=== PATIENT | male | born 1930 | race Caucasian/White ===

== ENCOUNTER 2017-06-21 10:02 | Day surgery (SDC) | payer MEDICARE, BC, SELFPAY ==
[~2017-06-21] VITALS: Ht 174 cm; Wt 77.1 kg
[2017-06-21] VITALS (10 sets, daily range): BP systolic 106–124; BP diastolic 42–66
--- NOTE | 2017-06-21 09:36 | Pre-Procedure Note/Attestation ---
Pre-Procedure Note/Attestation Complete Prior to Procedure Planned Procedure: left - Removal of cataract and placement of intraocular lens , left eye Procedure Narrative: Removal of cataract and placement of intraocular lens, left eye Indications for Procedure Pre-Operative Diagnosis: Cataract, combined, left eye Attestation I attest that I discussed the nature of the procedure; its benefits; risks and complications; and alternatives (and the risks and benefits of such alternatives ), prior to the procedure, with the patient (or the patient's legal retail wireless sales representative). I attest that, if there was a reasonable possibility of needing a blood transfusion, the patient (or the patient's legal retail wireless sales representative) was given the [place] Department of Health Services standardized written summary, pursuant to the [place] Blood Safety Act ([place] Health and Safety Code # 1645, as amended). I attest that I re-evaluated the patient just prior to the surgery and that there has been no change in the patient's H&P, except as documented below: Zia Coffman MD Jun 21, 2017 09:36
[~2017-06-21 10:02] MED LIST: BACTRIM-DS1 EA ORAL; CARTIA XT240 MG ORAL; CRESTOR10 M2 ORAL; CYMBALTA60 MG ORAL; GABAPENTIN300 MG ORAL; HYDROCODON-ACE1 EA16 ORAL; LIDOCAINE700 M1 TP; LYRICA75 M1 ORAL; NKM; NUVIGIL200 MG PO; PRADAXA150 MG ORAL; PREDNISONE20 MG ORAL; RAMIPRIL5 MG ORAL; ZOFRAN4 M1 ORAL; ZYTIGA500 MG PO
[2017-06-21] MEDS ORDERED: Fluorescein Strips ONE (10:18)
[2017-06-21] MEDS ORDERED: BSS 500ml btl ONE (10:18)
[2017-06-21] MEDS ORDERED: Timolol 0.5% Op Soln 2.5ml ONE (10:19)
[2017-06-21] MEDS ORDERED: Dexamethasone 4mg/ml vial ONE (10:19)
[2017-06-21] MEDS ORDERED: Tetracaine 0.5% Opth 4ml Soln ONE (10:19)
[2017-06-21] MEDS ORDERED: Pred Forte 1% Opth Susp 1ml ONE (10:19)
[2017-06-21] MEDS ORDERED: Maxitrol Opth Oint 3.5gm ONE (10:19)
[2017-06-21] MEDS ORDERED: Lidocaine 1% MPF 10mg/ml 5ml ONE ×2 (10:19→12:06)
[2017-06-21] MEDS ORDERED: EPINEPHrine 1mg/1ml Amp ONE (10:20)
[2017-06-21] MEDS ORDERED: Povidone-Iodine 5% opth solution ONE (10:20)
[2017-06-21] MEDS ORDERED: Lidocaine 4% Amp ONE (10:20)
[2017-06-21] MEDS ORDERED: Carbachol 0.01% Op Soln 1.5ml vial ONE (10:20)
[2017-06-21] MEDS ORDERED: Sodium Hyaluronate 10 mg/ml 0.85ml ONE ×2 (10:21→13:22)
[2017-06-21] MEDS ORDERED: Bupivacaine 0.75% 30ml vial INJ ONE (10:21)
[2017-06-21] MEDS ORDERED: Acetylcholine Injection (OR) ONE (10:21)
[2017-06-21] MEDS ORDERED: BSS 15ml BTL ONE (10:21)
[2017-06-21] MEDS ORDERED: Phenylephrine 10% Opth Soln 5ml ONE (10:59)
[2017-06-21] MEDS ORDERED: Ciprofloxacin Opth Soln 2.5ml ONE (11:00)
[2017-06-21] MEDS ORDERED: Akten 3.5% 1ml Btl ONE (11:00)
[2017-06-21] MEDS ORDERED: Cyclopentolate 1% Opth Sol 2ml ONE (11:00)
[2017-06-21] MEDS: Akten 3.5% 1ml Btl LEFT EYE SCH ×3 (11:05→11:19)
[2017-06-21] MEDS: Ciprofloxacin Opth Soln 2.5ml LEFT EYE SCH ×3 (11:06→11:19)
[2017-06-21] MEDS: Cyclopentolate 1% Opth Sol 2ml LEFT EYE SCH ×3 (11:06→11:19)
[2017-06-21] MEDS: Phenylephrine 10% Opth Soln 5ml LEFT EYE SCH ×3 (11:06→11:19)
--- NOTE | 2017-06-21 11:29 | Anethesia Preoperative Eval ---
Anesthesia Pre-op PMH/ROS General Date of Evaluation: Jun 21, 2017 Time of Evaluation: 12:11 Anesthesiologist: Dara ASA Score: ASA 4 Mallampati Score Class I : Soft palate, uvula, fauces, pillars visible Class II: Soft palate, uvula, fauces visible Class III: Soft palate, base of uvula visible Class IV: Only hard plate visible Mallampati Classification: Class II Surgeon: Augustus Diagnosis: Cataract OS Surgical Procedure: Cat Ext IOL OS Anesthesia History: none Family History: no anesthesia problems Allergies: Coded Allergies: No Known Allergies (Unverified , 09/21/15) Medications: see eMAR Past Medical History Cardiovascular: Reports: HTN, CAD, [place], arrhythmia - AFib Gastrointestinal/Genitourinary: Reports: other - Prostate CA Endocrine: Reports: DM HEENT: Reports: cataract (L), IROQUOIS (L), IROQUOIS (R) PSxH Narrative: Lumbar Spine SX, Renal Stent Anesthesia Pre-op Phys. Exam Physician Exam Last Vital Signs Date Time Temp Pulse Resp B/P (MAP) Pulse Ox O2 Delivery O2 Flow Rate FiO2 06/21/17 10:47 97.5 53 20 124/62 95 Room Air Constitutional: NAD Neurologic: CN 2-12 intact Cardiovascular: RRR Respiratory: CTA Gastrointestinal: S/NT/ND Airway Exam Mallampati Score: Class II MO: limited ROM: limited Teeth: missing, intact Anesthesia Pre-op A/P Labs Coagulation Test 06/21/17 11:05 Prothrombin Time Pending Prothromb Time International Ratio Pending Activated Partial Thromboplast Time Pending Risk Assessment & Plan Assessment: ASA 3 Plan: [place] Status Change Before Surgery: Tonio Skaggs MD Jun 21, 2017 11:29
[2017-06-21] MEDS ORDERED: LR 1000ml 1,000 ML IVLG SCH (11:32)
[2017-06-21 11:36] LABS: INR 1.1 (0.9-1.1); PROTHROMBIN TIME 11.5 SEC (9.30-11.50)
--- NOTE | 2017-06-21 11:37 | Immediate Post-Op Evaluation ---
Immediate Post-Op Evalulation Immediate Post-Op Evalulation Procedure: Cat Ext IOL OS Date of Evaluation: Jun 21, 2017 Time of Evaluation: 13:29 IV Fluids: 200 LR Blood Products: 0 Estimated Blood Loss: 1 Urinary Output: 0 Blood Pressure Systolic: 118 Blood Pressure Diastolic: 62 Pulse Rate: 41 Respiratory Rate: 16 O2 Sat by Pulse Oximetry: 100 Temperature (Fahrenheit): 97 Pain Score (1-10): 1 Nausea: No Vomiting: No Complications 0 Patient Status: awake, reacts, patent, extubated, none Hydration Status: adequate Tonio Diamond MD Jun 21, 2017 11:37
--- NOTE | 2017-06-21 11:38 | 48 Hour Post Anesthesia Eval ---
Post Anesthesia Evaluation Procedure: Cat Ext IOL OS Date of Evaluation: Jun 21, 2017 Time of Evaluation: 15:41 Blood Pressure Systolic: 115 0: 73 Pulse Rate: 46 Respiratory Rate: 18 Temperature (Fahrenheit): 97.2 O2 Sat by Pulse Oximetry: 100 Airway: patent Nausea: No Vomiting: No Pain Intensity: 1 Hydration Status: adequate Cardiopulmonary Status: Stable Mental Status/LOC: patient returned to baseline Follow-up Care/Observations: 0 Post-Anesthesia Complications: 0 Follow-up care needed: ready to discharge Tonio Diamond MD Jun 21, 2017 11:38
[2017-06-21] MEDS ORDERED: Norco 7.5mg/325mg tab ORAL PRN (11:45)
[2017-06-21] MEDS ORDERED: Atropine Inj 1mg/10ml Syr IV PRN (11:45)
[2017-06-21] MEDS ORDERED: Midazolam 2mg/2ml Inj IVP PRN (11:45)
[2017-06-21] MEDS ORDERED: fentaNYL 100 mcg/2 mL IV PRN (11:45)
[2017-06-21] MEDS ORDERED: Hydromorphone 0.5mg/0.5ml inj IVP PRN (11:45)
[2017-06-21] MEDS ORDERED: LORazepam Inj 2mg/ml 1ml IV PRN (11:45)
[2017-06-21] MEDS ORDERED: Metoclopramide 10mg/2ml Inj IVP PRN (11:45)
[2017-06-21] MEDS ORDERED: oxyCODONE HCL/Acetaminophen 5/325mg ORAL PRN (11:45)
[2017-06-21] MEDS ORDERED: DiphenhydrAMINE 50mg/ml Inj IVP PRN (11:45)
[2017-06-21] MEDS ORDERED: Ketorolac 30mg Inj IV PRN (11:45)
[2017-06-21] MEDS ORDERED: Ketorolac 60mg Inj IV PRN (11:45)
[2017-06-21] MEDS ORDERED: Norco 5mg/325mg tab ORAL PRN (11:45)
[2017-06-21] MEDS ORDERED: Midazolam 2mg/2ml Inj ONE (12:00)
[2017-06-21] MEDS ORDERED: Propofol 200mg/20ml IV ONE (12:06)
[2017-06-21] MEDS ORDERED: LR 1000ml ONE (12:06)
--- NOTE | 2017-06-21 13:24 | Discharge Instructions ---
Discharge Instructions Discharge Instructions Follow Up Orders Continue eye drops Followup tomorrow in Dr Coffman's office Wear shield at all times except to place eye drops Return to Work/School on: Jun 21, 2017 For Congestive Heart Failure Reminder Report to your physician any weight gain of 5 pounds or more in one week. Zia Coffman MD Jun 21, 2017 13:24
--- NOTE | 2017-06-24 09:31 | Brief Operative Note ---
Immediate Post Operative Note Operative Note Pre-op Diagnosis: Cataract, combined, left eye Procedure: Phaco PC IOL, OS Use of malyugian ring, (7.0) Post-op Diagnosis: Cataract, combined, left eye floppy iris syndrome, left eye Post-op Diagnosis: same as pre-op plus Surgeon: Bettye Coffman MD Throw Out Clerk: none Anesthesiologist: Dr Hyde Anesthesia: local, MAC Specimen: none Complications: none Fluids: see notes Estimated Blood Loss: minimal Implant(s) used?: Yes - armida snd1T4 20.0 Zia Coffman MD Jun 24, 2017 09:31
--- NOTE | 2017-06-26 04:15 | Operative Note - Dictated ---
DATE OF OPERATION: 06/21/2017 SURGEON: Zia Coffman M.D. FITNESS LEADER SURGEON: None. ANESTHESIOLOGIST: Dr. Diamond. ANESTHESIA: Local/standby/monitored anesthesia care. PREOPERATIVE DIAGNOSIS: Cataract, combined, left eye. POSTOPERATIVE DIAGNOSES: 1. Cataract, combined nuclear and cortical, left eye. 2. Floppy iris syndrome, left eye. PROCEDURE: 1. Phacoemulsification cataract, left eye. 2. Placement of posterior chamber intraocular lens, left eye (model Jose Angel Restor Toric SND1T4, power 20.0). 3. Use of Malyugin ring (7.0 millimeters). SPECIMENS: None. COMPLICATIONS: None. INDICATIONS FOR SURGERY: The patient has progressive decrease in visual acuity in the left eye secondary to cataract. The patient understands the risks of surgery including infection, bleeding, need for further surgery, loss of vision, no improvement in vision, loss of the eye, loss of life, glaucoma, or retinal detachment and understands these risks and elects to proceed with surgery. FINDINGS: The patient had a +3 nuclear sclerotic cataract as well as +2 cortical cataract, especially centrally and anteriorly, it was more or less +3 cortical anterior subcapsular changes. In addition, he had a floppy iris syndrome despite being started on 1% atropine eyedrops preoperatively. The pupil was constricted. A Malyugin ring (7.0 mm) was used during the procedure. OPERATIVE NOTE: After informed consent was obtained, the patient was brought into the operating room and placed in the supine position. Cardiac and respiratory monitors were attached. The patient sat up on the gurney and tetracaine drops were placed in the left eye and the 12 o'clock, 3 o'clock, and 9 o'clock limbus areas were marked with marking pen. The patient then laid down and then a time out was performed and all criteria were met and everyone in the room agreed. The left eye was then draped and prepped in sterile manner for ocular surgery. A lid speculum was placed in the eye. A 1% lidocaine preservative-free was injected at the approximate 2 o'clock limbus. A conjunctival peritomy from approximately 1:30 to 2:30 was made and dissected posteriorly. A paracentesis was made at approximately 5:30 and Shugarcaine was injected into the anterior chamber, followed by Healon. The anterior chamber was then entered using a 2.6 mm keratome. At this time of the surgery, the pupil started to come down. A 7.0 mm Malyugin ring was injected into the anterior chamber and hooked onto the pupillary margin at 4 points. An anterior capsulorrhexis was then performed. Hydrodissection and hydrodelineation of the lens was then performed. The lens was then phacoemulsified using divide and conquer four-quadrant technique. Healon was injected into the anterior chamber and capsular bag. The lens was taken from its package, put into the cartridge and the tip of the cartridge was placed through the limbal incision and the lens was injected into the capsular bag. Prior to beginning of the case, the corneal surface was marked with appropriate access for the placement of the toric lens. The lens was now in the capsular bag. Then approximately beyond the axis, which was approximately 164. It was rotated and the Malyugin ring was removed from the anterior chamber as well as the Healon aspirated from the anterior chamber. The pupil was dilated where it was noted that both haptics were in the capsular bag as well as the optic. The lens was then rotated to completely finish its alignment to approximately 164 degree axel. Again, the iris was retracted and both optics and haptics were noted to be in the bag. One 10-0 nylon interrupted suture was then placed through the limbal incision and the knot was rotated and buried. The paracentesis was hydrated and closed. The wounds were checked and found to be watertight. The conjunctiva was then closed with forceps cautery. The lid speculum and drapes removed from the eye and drops of Pred Forte and ciprofloxacin were applied followed by Maxitrol ointment and then a shield. The patient tolerated the procedure well and left the operating room in awake, alert and stable condition. Zia Coffman M.D. DR: JOHN JOB#: [id number] CC:
== END 2017-06-21 15:00 | disposition home or self-care (01) ==
LOC: SUR 10:02
DX: H25.812 Combined forms of age-related cataract, left eye (principal); H21.81 Floppy iris syndrome; F17.200 Nicotine dependence, unspecified, uncomplicated; I10 Essential (primary) hypertension; I25.10 Atherosclerotic heart disease of native coronary artery without angina pectoris; I25.2 Old myocardial infarction; E11.9 Type 2 diabetes mellitus without complications; Z85.46 Personal history of malignant neoplasm of prostate; I48.91 Unspecified atrial fibrillation; Z80.9 Family history of malignant neoplasm, unspecified; I51.7 Cardiomegaly; M19.90 Unspecified osteoarthritis, unspecified site
CPT/HCPCS: 36415; 66982; 85610; 85730; J0171; J1100; J2250; J2704; J7120; V2632; 94003; 94150

== ENCOUNTER 2017-08-02 12:18 | Day surgery (SDC) | payer MEDICARE, BC, SELFPAY ==
[2017-08-02] VITALS (9 sets, daily range): BP systolic 134–155; BP diastolic 59–78
[~2017-08-02] VITALS: Ht 172.7 cm; Wt 77.1 kg
--- NOTE | 2017-08-02 06:57 | Pre-Procedure Note/Attestation ---
Pre-Procedure Note/Attestation Complete Prior to Procedure Planned Procedure: right - removal of cataract and placement of intraocular lens, right eye Procedure Narrative: Removal of cataract and placement of intraocular lens, right eye Possible use of Malyugian ring right eye Indications for Procedure Pre-Operative Diagnosis: Cataract, mixed, right eye Miosis, right eye Attestation I attest that I discussed the nature of the procedure; its benefits; risks and complications; and alternatives (and the risks and benefits of such alternatives ), prior to the procedure, with the patient (or the patient's legal marketing development representative). I attest that, if there was a reasonable possibility of needing a blood transfusion, the patient (or the patient's legal marketing development representative) was given the [place] Department of Health Services standardized written summary, pursuant to the [place] Blood Safety Act ([place] Health and Safety Code # 1645, as amended). I attest that I re-evaluated the patient just prior to the surgery and that there has been no change in the patient's H&P, except as documented below: Zia Coffman MD Aug 02, 2017 06:57
[2017-08-02] MEDS ORDERED: Ciprofloxacin Opth Soln 2.5ml ONE (12:54)
[2017-08-02] MEDS ORDERED: Akten 3.5% 1ml Btl ONE (12:54)
[2017-08-02] MEDS ORDERED: Cyclopentolate 1% Opth Sol 2ml ONE (12:54)
[2017-08-02] MEDS ORDERED: Flurbiprofen 0.03% Opth Sol 2.5ml ONE (12:54)
[2017-08-02] MEDS ORDERED: Phenylephrine 10% Opth Soln 5ml ONE (12:54)
[2017-08-02] MEDS ORDERED: Tropicamide 1% Opth 15ml Soln ONE (13:14)
[2017-08-02] MEDS: Akten 3.5% 1ml Btl RIGHT EYE SCH ×3 (13:16→13:38)
[2017-08-02] MEDS: Cyclopentolate 1% Opth Sol 2ml RIGHT EYE SCH ×3 (13:17→13:39)
[2017-08-02] MEDS: Phenylephrine 10% Opth Soln 5ml RIGHT EYE SCH ×3 (13:17→13:39)
[2017-08-02] MEDS: Ciprofloxacin Opth Soln 2.5ml RIGHT EYE SCH ×3 (13:17→13:39)
[2017-08-02] MEDS: Tropicamide 1% Opth 15ml Soln RIGHT EYE SCH ×3 (13:17→13:39)
[2017-08-02] MEDS: Flurbiprofen 0.03% Opth Sol 2.5ml RIGHT EYE SCH ×3 (13:18→13:39)
--- NOTE | 2017-08-02 13:26 | Anethesia Preoperative Eval ---
Anesthesia Pre-op PMH/ROS General Date of Evaluation: Aug 02, 2017 Time of Evaluation: 13:22 Anesthesiologist: gregorio ASA Score: ASA 3 Mallampati Score Class I : Soft palate, uvula, fauces, pillars visible Class II: Soft palate, uvula, fauces visible Class III: Soft palate, base of uvula visible Class IV: Only hard plate visible Mallampati Classification: Class II Surgeon: ree Diagnosis: cataract right eye Surgical Procedure: catarat extraction w/ iol right Anesthesia History: none Social History: current smoker Family History: no anesthesia problems Allergies: Coded Allergies: No Known Allergies (Unverified , 09/21/15) Medications: see eMAR Past Medical History Cardiovascular: Reports: HTN, [place], arrhythmia Gastrointestinal/Genitourinary: Reports: other - prostate cancer Neurologic/Psychiatric: Reports: other - peripheral neuropathy Endocrine: Reports: DM HEENT: Reports: cataract (L), cataract (R) Hematology/Immune: Reports: anemia Anesthesia Pre-op Phys. Exam Physician Exam Last Vital Signs Date Time Temp Pulse Resp B/P (MAP) Pulse Ox O2 Delivery O2 Flow Rate FiO2 08/02/17 13:34 97.5 67 20 147/76 96 Room Air Constitutional: NAD Neurologic: CN 2-12 intact Cardiovascular: RRR Respiratory: CTA Gastrointestinal: S/NT/ND Airway Exam Mallampati Score: Class II MO: limited ROM: limited Teeth: missing Anesthesia Pre-op A/P Labs Labs Test 08/02/17 13:30 White Blood Count 9.2 K/UL (4.8-10.8) Red Blood Count 3.85 M/UL (4.70-6.10) Hemoglobin 12.0 G/DL (14.2-18.0) Hematocrit 36.6 % (42.0-52.0) Mean Corpuscular Volume 95 FL (80-99) Mean Corpuscular Hemoglobin 31.2 PG (27.0-31.0) Mean Corpuscular Hemoglobin Concent 32.8 G/DL (32.0-36.0) Red Cell Distribution Width 15.0 % (11.6-14.8) Platelet Count 263 K/UL (150-450) Mean Platelet Volume 5.7 FL (6.5-10.1) Neutrophils (%) (Auto) 80.2 % (45.0-75.0) Lymphocytes (%) (Auto) 9.8 % (20.0-45.0) Monocytes (%) (Auto) 8.0 % (1.0-10.0) Eosinophils (%) (Auto) 1.1 % (0.0-3.0) Basophils (%) (Auto) 0.9 % (0.0-2.0) Sodium Level 138 MMOL/L (136-145) Potassium Level 4.4 MMOL/L (3.5-5.1) Chloride Level 104 MMOL/L (98-107) Carbon Dioxide Level 32 MMOL/L (21-32) Anion Gap 3 mmol/L (5-15) Blood Urea Nitrogen 26 mg/dL (7-18) Creatinine 1.0 MG/DL (0.55-1.30) Estimat Glomerular Filtration Rate mL/min (>60) Glucose Level 87 MG/DL (74-106) Calcium Level 8.8 MG/DL (8.5-10.1) Risk Assessment & Plan Assessment: asa3 Plan: mac Status Change Before Surgery: No Pre-Antibiotics Drug: GAYATRI Contreras Aug 02, 2017 13:26
[2017-08-02 13:50] LABS: BASOPHILS % (AUTO) 0.9 % (0.0-2.0); EOSINOPHILS % (AUTO) 1.1 % (0.0-3.0); LYMPHOCYTES % (AUTO) 9.8 % (20.0-45.0); MEAN CORPUSCULAR HEMOGLOBIN 31.2 PG (27.0-31.0); MEAN CORPUSCULAR HGB CONC 32.8 G/DL (32.0-36.0); MEAN CORPUSCULAR VOLUME 95 FL (80-99); MEAN PLATELET VOLUME 5.7 FL (6.5-10.1); NEUTROPHILS % (AUTO) 80.2 % (45.0-75.0); PLATELET COUNT 263 K/UL (150-450); RED BLOOD COUNT 3.85 M/UL (4.70-6.10); WHITE BLOOD COUNT 9.2 K/UL (4.8-10.8)
[2017-08-02 13:58] LABS: ANION GAP 3 mmol/L (5-15); CALCIUM 8.8 MG/DL (8.5-10.1); CARBON DIOXIDE 32 MMOL/L (21-32); CHLORIDE 104 MMOL/L (98-107); POTASSIUM 4.4 MMOL/L (3.5-5.1); SODIUM 138 MMOL/L (136-145)
[2017-08-02] MEDS ORDERED: Sterile Water Irrig 1000ml IRRIG ONE (14:00)
[2017-08-02] MEDS ORDERED: LR 1000ml ONE (14:00)
[2017-08-02] MEDS ORDERED: D5W 110ml ONE (14:00)
[2017-08-02] MEDS ORDERED: Midazolam 2mg/2ml Inj ONE (14:00)
[2017-08-02] MEDS ORDERED: NS Irrig 1000ml ONE (14:00)
[2017-08-02] MEDS ORDERED: LR 1000ml 1,000 ML IVLG SCH (14:50)
[2017-08-02] MEDS ORDERED: fentaNYL 100 mcg/2 mL IV PRN (15:00)
[2017-08-02] MEDS ORDERED: Midazolam 2mg/2ml Inj IVP PRN (15:00)
[2017-08-02] MEDS ORDERED: Atropine Inj 1mg/10ml Syr IV PRN (15:00)
[2017-08-02] MEDS ORDERED: DiphenhydrAMINE 50mg/ml Inj IVP PRN (15:00)
--- NOTE | 2017-08-02 15:17 | Discharge Instructions ---
Discharge Instructions Discharge Instructions Follow Up Orders Wear eye shield at all times except to place eye drops Continue preop eye drops Followup tomorrow in Dr Coffman's office Return to Work/School on: Aug 02, 2017 For Congestive Heart Failure Reminder Report to your physician any weight gain of 5 pounds or more in one week. Zia Coffman MD Aug 02, 2017 15:17
--- NOTE | 2017-08-02 15:20 | Brief Operative Note ---
Immediate Post Operative Note Operative Note Pre-op Diagnosis: Cataract, mixed, right eye Miosis, right eye Procedure: phaco pc iol, OD use of malyugian ring (7.0) Post-op Diagnosis: same as pre-op Anesthesia: local, MAC Specimen: none Complications: none Fluids: as per anesthesia Implant(s) used?: Yes - armida restor snd1t5 20.5 Zia Coffman MD Aug 02, 2017 15:20
[2017-08-02] MEDS ORDERED: BSS 500ml btl ONE (15:35)
[2017-08-02] MEDS ORDERED: Dexamethasone 4mg/ml vial ONE (15:35)
[2017-08-02] MEDS ORDERED: Pred Forte 1% Opth Susp 1ml ONE (15:35)
[2017-08-02] MEDS ORDERED: Lidocaine 1% MPF 10mg/ml 5ml ONE (15:35)
[2017-08-02] MEDS ORDERED: Maxitrol Opth Oint 3.5gm ONE (15:35)
[2017-08-02] MEDS ORDERED: BSS 15ml BTL ONE (15:36)
[2017-08-02] MEDS ORDERED: Povidone-Iodine 5% opth solution ONE (15:36)
[2017-08-02] MEDS ORDERED: EPINEPHrine 1mg/1ml Amp ONE (15:36)
[2017-08-02] MEDS ORDERED: Lidocaine 4% Amp ONE (15:36)
[2017-08-02] MEDS ORDERED: Sodium Hyaluronate 10 mg/ml 0.85ml ONE (15:36)
[2017-08-02] MEDS ORDERED: Sodium Hyaluronate 14 mg/ml 0.85ml ONE (15:36)
--- NOTE | 2017-08-02 21:15 | Operative Note - Dictated ---
DATE OF OPERATION: 08/02/2017 SURGEON: Zia Coffman M.D. GEOPHYSICS SCIENTIST SURGEON: None. ANESTHESIOLOGIST: Ida Lux M.D. ANESTHESIA: Local/standby/monitored anesthesia care. PREOPERATIVE DIAGNOSES: 1. Cataract, dense, mixed, right eye. 2. Floppy iris syndrome, miosis, right eye. POSTOPERATIVE DIAGNOSES: 1. Cataract, dense, mixed, right eye. 2. Floppy iris syndrome, miosis, right eye. PROCEDURES: 1. Phacoemulsification of cataract, right eye. 2. Placement of posterior chamber intraocular lens, right eye (model Jose Angel ReSTOR SND1T5, power 20.5). 3. Use of Malyugin ring, right eye (model size 7.0). SPECIMENS: None. COMPLICATIONS: None. INDICATIONS FOR SURGERY: The patient has had a painless progressive decrease in the visual acuity in the right eye secondary to cataract. The patient understands the risks of surgery including infection, bleeding, need for further surgery, loss of vision, no improvement in vision, loss of the eye, loss of life, glaucoma, retinal detachment, and understands these risks and elects to proceed with surgery. FINDINGS: The patient had a dense +3 to 4 nuclear sclerotic cataract as well as +2 to 3 cortical changes. In addition, he had miosis of the right eye (which was seen preoperatively also). OPERATIVE NOTE: After informed consent was obtained, the patient was brought into the operating room. Tetracaine drops were placed in both eyes. The patient sat up and looking straight ahead, the 3 o'clock, 9 o'clock, and 12 o'clock limbal areas were marked. After lying back down, a time-out was performed and all criteria were met and everyone in the room agreed. The right eye was then draped and prepped in sterile manner for ocular surgery. A lid speculum was placed in the eye. Astigmatic markers were used and marked at the 22-degree axis (which was calculated preoperatively for the correct axis). The corneal surface was marked in the 22-degree axis. A 1% lidocaine preservative-free was injected at the approximate 10 o'clock limbus. A conjunctival peritomy from approximately 9:30 to 10:30 was made and dissected posteriorly. Hemostasis was maintained with bipolar cautery. A 2.6 mm limbal incision was made centered at approximately 10 o'clock and dissected anteriorly. A paracentesis was made at approximately 12:30 and Shugarcaine was injected into the anterior chamber followed by Healon. The anterior chamber was then entered using a 2.6 mm keratome through the limbal incision. A Malyugin ring was used and injected into the anterior chamber and hooked onto the pupillary margin at four points. An anterior capsulorrhexis was then performed. Hydrodissection and hydrodelineation of the lens was then performed. The lens was then phacoemulsified using divide and conquer four-quadrant technique. Residual cortical material was then aspirated. Healon was injected into the anterior chamber and capsular bag. The lens was taken from its package and placed into the cartridge and the tip of the cartridge was placed through the limbal incision and the lens was injected into the capsular bag and centered nicely with a [place]inskey hook. Both haptics and the optics were noted to be in the capsular bag. The Malyugin ring was then removed. The lens was rotated such that it was aligned with the 22-degree axis. Healon was then aspirated from the anterior chamber and capsular bag. Again, direct visualization of the lens was performed pulling back the iris and the lens. Haptic and both optics were noted to be in the capsular bag. The PCIOL was aligned correctly along the 22-degree axis. One 10-0 nylon interrupted suture was then placed through the limbal incision and the knot was rotated and buried. Care was taken during the entire procedure not to touch the endothelium. The wound was checked and found to be watertight and also the suture was previously rotated so the knot was buried. The limbal wound and paracentesis were hydrated and closed. The conjunctiva was then closed with forceps cautery. The lid speculum and drapes were removed from the eye and drops of Pred Forte and ciprofloxacin were applied to the eye followed by also a drop of Betadine, which was irrigated from the ocular surface. Maxitrol ointment was applied to the surface of the eye followed by a shield. The patient tolerated the procedure well and left the operating room awake, alert, and in stable condition. Zia Coffman M.D. DR: HEATHER JOB#: [id number] CC:
--- NOTE | 2017-08-04 21:47 | Pre-op HX & Phy Repo 2 SIG ---
DATE OF ADMISSION: 08/02/2017 NOTE: POOR AUDIO QUALITY PRESURGICAL INTERNAL MEDICINE HISTORY AND PHYSICAL REASON FOR EVALUATION: I was asked by Dr. Zia Coffman to see this 86-year-old male, who is going for elective surgery on the right eye. The patient has a cataract in right eye. Please see full History and Physical by Dr. Zai Coffman. The patient . The patient is . reviewed. PAST MEDICAL HISTORY: Remarkable for history of hypertension, heart attack in 1973, chronic atrial fibrillation. No history of diabetes or stroke. The patient peripheral neuropathy and prostate cancer. The patient neck pain, degenerative joint disease of the spine and uses a walker for ambulation. No history of GI bleeding. No hepatitis. No respiratory problem, asthma, or bronchitis. No thyroid problem. PAST SURGICAL HISTORY: Cataract of left eye last month, tip of the finger amputated on the right hand 75 years ago. ALLERGIES: Not known. PRESENT MEDICATIONS: Include Pradaxa, , oxycodone, Lupron injection, enalapril 5 mg daily, Crestor, Cymbalta, gabapentin, FAMILY HISTORY: Father from [place] at the age of 74. Mother from heart attack. PHYSICAL EXAMINATION: GENERAL: The patient is alert, well-developed , no acute distress. VITAL SIGNS: Blood pressure 147/76, temperature 97.8 degrees, and pulse 67 and regular, 97% on room air. HEENT: Head, normocephalic and atraumatic. Ears, clear, no discharge. Eyes, full description per Dr. Coffman. Mouth, clear and moist. NECK: Supple. No jugular venous distention. Carotid artery +2. Trachea midline. CHEST: . LUNGS: Clear. No rales or rhonchi. HEART: . No murmur. No S3 or S4. ABDOMEN: Soft and benign. Liver and spleen not enlarged. No rebound. EXTREMITIES: No edema. No varicose vein. No calf tenderness. Absence of the tip of the finger of the right hand. GENITOURINARY: Urine incontinence. History of prostate cancer diagnosed a year ago. BACK: Pain at the level of L3-L4. NERVOUS SYSTEM: intact. No asymmetry. LABORATORY EXAM: Electrocardiogram dated 05/23/2017 atrial fibrillation with normal ventricular response . Lab work is pending obtained from 9 p.m. yesterday. IMPRESSION: 1. Cataract, right eye. 2. Hypertension. 3. Chronic atrial fibrillation. 4. Prostate cancer. 5. Peripheral neuropathy. 6. Chronic low back pain. PLAN: Cataract extraction, right eye with intraocular lens implant by Dr. Zia Coffman. CONCLUSION: The patient is an 86-year-old male with history of chronic atrial fibrillation. He also had concomitant hypertension, which is controlled and history of prostate cancer, which is under treatment. The patient also has peripheral neuropathy and low back pain. The patient yesterday. The patient's condition optimized for surgery. Virginia Tafoya M.D. DR: JOSLYN JOB#: [id number] CC:
== END 2017-08-02 17:00 | disposition home or self-care (01) ==
LOC: SUR 12:18
DX: H25.11 Age-related nuclear cataract, right eye (principal); H21.81 Floppy iris syndrome; H57.03 Miosis; F17.200 Nicotine dependence, unspecified, uncomplicated; I10 Essential (primary) hypertension; I25.2 Old myocardial infarction; Z85.46 Personal history of malignant neoplasm of prostate; E11.9 Type 2 diabetes mellitus without complications
CPT/HCPCS: 36415; 66982; 80048; 85025; J0171; J1100; J1170; J2250; J7120; V2632; 94003; 94150